=== PATIENT | female | born 2000 | race Caucasian/White ===

== ENCOUNTER 2024-03-21 19:14 | Emergency (ER) | payer MEDICAID ==
[~2024-03-21] VITALS: Ht 165.1 cm; Wt 68.0 kg
[2024-03-21 19:19] VITALS: O2SAT 100
[2024-03-21] MEDS ORDERED: P20 MT (20:13)
[2024-03-21] MEDS ORDERED: DIPH25CA83 MT (20:13)
[2024-03-21 20:36] VITALS: BP 115/71; PULSE 85; RESP 18; TEMP 98.2
== END 2024-03-21 20:37 | disposition home or self-care (01) ==
LOC: ER 19:14
DX: T78.40XA Allergy, unspecified, initial encounter (principal); X58.XXXA Exposure to other specified factors, initial encounter
CPT/HCPCS: 99283